=== PATIENT | female | born 1960 | race Caucasian/White ===

== ENCOUNTER → 2016-07-09 | Outpatient (CLI) | payer OTHER ==
--- NOTE | 2016-07-09 14:30 | Diagnostic Imaging Report ---
PROCEDURE: CT abdomen and pelvis without contrast. TECHNIQUE: Multiple contiguous axial images were obtained through the abdomen and pelvis without the use of intravenous contrast. INDICATION: Right lower quadrant pain of one week's duration however recently worsening in severity. COMPARISON: I have no priors. FINDINGS AND IMPRESSION: The appendix is well seen, nondilated, and normal. There is no appendicitis. There were no findings of diverticulitis. There are no opaque kidney stones and there is no hydronephrosis. The unopacified liver, spleen, and pancreas are unremarkable. There is some low-density thickening and nodularity of the left adrenal gland, likely some adenomatous hyperplasia. This measures 9 mm in thickness. Small and large bowel are unobstructed, nondilated, nonacute, and nonfocal. There is no mesenteric or retroperitoneal lymphadenopathy. Some shotty nodes in the bilateral inguinal canals are likely incidental. The uterus and adnexa are unremarkable. The urinary bladder is unremarkable. There is no focal inflammatory process. Lung bases and the osseous structures are nonacute. Results discussed with the ordering physician. Dictated by: Dictated on workstation # [id number]
== END ==
LOC: RAD 13:23
PROVIDERS: ATTEND Family Medicine
DX: R10.31 Right lower quadrant pain (principal)
CPT/HCPCS: 74176